=== PATIENT | male | born 1955 | race Caucasian/White ===

== ENCOUNTER 2020-04-29 09:08 | Inpatient (IN) | payer MEDICAID, SELFPAY ==
[~2020-04-29] VITALS: Ht 180.3 cm; Wt 80.7 kg
--- NOTE | 2020-04-29 09:25 | NUR ---
REPORT RECEIVED FROM TOMÁS TIM. THIS IS AN 86 YO M BIB EMS FROM HOME. PT FOUND DOWN, ALTERED W/ REPETITVE SPEECH AND PERIODS OF APNEIC BREATHING. PER EMS PT WAS IN AFIB UNKNOWN HX. UPON ARRIVAL PT REPEATING "I HAD A SEIZURE, I HAD A SEIZURE". DENIES PAIN. PT APPEARS TO HAVE HAD AN EPISODE OF BOWEL INCONTINENCE. PT HAVING INTERMITTENT UNRESPONSIVENESS W/ NORMAL BREATHING. VSS. AT BEDSIDE.
--- NOTE | 2020-04-29 09:37 | NUR ---
PT TRANSPORTED TO CT. RETURNED TO ROOM W/O INCIDENT. RAD IN ROOM.
--- NOTE | 2020-04-29 09:51 | NUR ---
NO RESPONSE FROM PT W/ 2ND PIV STARTED. PT RESPONSIVE TO STERNAL RUB. STILL REPETITIVE SPEECH.
[2020-04-29] MEDS ORDERED: SODIUM CHLORIDE 0.9% 1,000ML IVBOLUS ONE ×2 (10:00→11:00)
[2020-04-29] MEDS ORDERED: SODIUM CHLORIDE FLUSH 10ML SYR IVF ONE (10:00)
[2020-04-29] MEDS ORDERED: DEXTROSE 50%, 50ML SYRINGE ONE (10:01)
--- NOTE | 2020-04-29 10:04 | NUR ---
PER DR.VAN SERRANO OK TO GIVE AMP OF D50.
[2020-04-29 10:07] LABS: BASOPHILS % (AUTO) 0 % (0-1); EOSINOPHILS % (AUTO) 0 % (1-7); LYMPHOCYTES % (AUTO) 2 % (22-44); MEAN CORPUSCULAR HEMOGLOBIN 34.6 pg (27.5-34.5); MEAN CORPUSCULAR HGB CONC 33.3 g/dL (33.2-36.2); MEAN PLATELET VOLUME 8.7 fL (7.4-10.4); MONOCYTES % (AUTO) 6 % (2-9); NEUTROPHILS % (AUTO) 92 % (42-75); PLATELET COUNT 323 x10^3/uL (130-400); RED BLOOD COUNT 3.45 x10^6/uL (4.38-5.82); RED CELL DISTRIBUTION WIDTH 15.4 % (9.4-14.8)
[2020-04-29] MEDS ORDERED: DEXTROSE 50%, 50ML SYRINGE IVPush ONE (10:15)
--- NOTE | 2020-04-29 10:16 | NUR ---
MED XOCHITL FROM PHARMACY.
[2020-04-29 10:18] LABS: ANION GAP 35 mmol/L (5-15); CALCIUM 7.6 mg/dL (8.5-10.1); CHLORIDE 90 mmol/L (98-107); CREATININE 6.48 mg/dL (0.7-1.3)
[2020-04-29 10:19] LABS: ALANINE AMINOTRANSFERASE 74 U/L (12-78); ALBUMIN 3.8 g/dL (3.4-5.0)
[2020-04-29] MEDS ORDERED: LEVETIRACETAM 1,000 MG in SODIUM CHLORIDE 0.9% 100 ML IV ONE (10:30)
[2020-04-29 10:44] LABS: MD MORPH REVIEW ONLY
[2020-04-29 10:45] LABS: ALKALINE PHOSPHATASE 113 U/L (45-117); ANISOCYTOSIS 1+; CREATINE KINASE, TOTAL 7233 U/L (39-308); TOTAL PROTEIN 8.3 g/dL (6.4-8.2)
[2020-04-29] MEDS ORDERED: LORazepam 2 MG/ML, 1ML ONE (10:46)
[2020-04-29 10:47] LABS: <PLATELET ESTIMATE> ADEQUATE; <PLT MORPHOLOGY> NORMAL PLT MORPH
--- NOTE | 2020-04-29 10:50 | NUR ---
2MG ATIVAN GIVEN FOR SEIZURE LIKE ACTIVITY PER .
--- NOTE | 2020-04-29 10:52 | NUR ---
16F ESPINOZA CATH INSERTED W/O INCIDENT. PT HAD 1900ML OUT UPON INSERTION. URINE COLLECTED AND SENT TO LAB.
[2020-04-29 10:55] LABS: SALICYLATE LEVEL 4.8 mg/dL (2.8-20.0)
--- NOTE | 2020-04-29 10:57 | NUR ---
REPORT FROM DUSTIN TIM ATIVAN WITH EXPECTED RESULTS. REPETITIVE MOVEMENTS/SPEECH CEASED PLACED ON OXYMASK FOR ATIVAN RELATED SEDATION POC CLARIFIED WITH PROVIDER (TO TREAT WBC WITH ABX, TO CONSULT ICU SERVICE DESK TECHNICIAN FOR SEVERE ELECTROLYTE ABNORMALITY TX (CALCIUM/PHOS), MEDICAL RECEPTIONIST BILLER ASKED FOR POTASSIUM REPLETION ORDERS
[2020-04-29] MEDS ORDERED: VANCOMYCIN PER PHARMACY MC ONE (11:00)
[2020-04-29] MEDS ORDERED: PIPERACILLIN/TAZO/PMX 4.5GM 100 ML IVPB ONE (11:00)
[2020-04-29] MEDS ORDERED: LORazepam 2 MG/ML, 1ML IVPush ONE (11:00)
--- NOTE | 2020-04-29 11:07 | NUR ---
MEDS REQUESTED FROM PHARMACY ORAL CARE PERFORMED, THICK CHINK OF BLACK MATTER FOUND IN MOUTH NO POTASSIUM REPLETION ORDERS YET NEPHROLOGY (AWAITING RETURN PAGE) TO DIRECT ELECTROLYTE CORRECTION PLAN
[2020-04-29 11:16] LABS: AMPHETAMINE SCREEN, URINE Negative (Negative); BARBITURATE SCREEN, URINE Negative (Negative); BENZODIAZEPINE SCREEN, URINE Negative (Negative); CANNABINOID SCREEN, URINE Negative (Negative); COCAINE SCREEN, URINE Negative (Negative); METHADONE SCREEN, URINE Negative (Negative); OPIATE SCREEN, URINE Negative (Negative)
[2020-04-29 11:20] LABS: MICROSCOPIC AUTO
[2020-04-29] MEDS ORDERED: VANCOMYCIN 1,500 MG in SODIUM CHLORIDE 0.9% 250 ML IV ONE (11:30)
[2020-04-29] MEDS ORDERED: SODIUM CHLORIDE 0.9% 1,000 ML IV ONE (12:00)
[2020-04-29] MEDS ORDERED: SODIUM CHLORIDE FLUSH 10ML SYR IVF PRN (12:00)
[2020-04-29] MEDS ORDERED: SODIUM BICARBONATE 8.4% 150 MEQ in DEXTROSE 5% 1,000 ML IV SCH ×2 (12:00→12:30)
--- NOTE | 2020-04-29 12:07 | NUR ---
NEPHROLOGY SPOKE TO PROVIDER: "PLAN TO START BICARB DRIP AND ELECTROLYTES SHOULD AUTO-CORRECT" ZOSYN COMPLETE, VANCOMYCIN STARTED, BICARB ORDERED FROM PHARMACY
[2020-04-29] MEDS ORDERED: SODIUM BICARBONATE 8.4% 150 MEQ in SODIUM CHLORIDE 0.45% 1,000 ML IV SCH (12:30)
--- NOTE | 2020-04-29 12:59 | NUR ---
TASK RN- SHIV BUSTOSM AT BEDSIDE FOR INTUBATION. PT ADMINISTERED 20 MG ETOMIDATE & 100 MG SUCCINYLCHOLINE.
[2020-04-29] MEDS ORDERED: DEXTROSE 50%, 50ML SYRINGE IVPush PRN (13:00)
[2020-04-29] MEDS ORDERED: DEXTROSE 4 GM TAB.CHEW PO PRN (13:00)
[2020-04-29] MEDS ORDERED: AMPICILLIN/SULBACTAM 1,500 MG in SODIUM CHLORIDE 0.9% 50 ML IV SCH (13:00)
[2020-04-29] MEDS ORDERED: DOCUSATE 100 MG CAPSULE PO PRN (13:00)
[2020-04-29] MEDS ORDERED: ONDANSETRON 2MG/ML, 2ML IVPush PRN (13:00)
[2020-04-29] MEDS ORDERED: LABETALOL 5MG/ML, 20ML IVPush PRN (13:00)
[2020-04-29] MEDS ORDERED: VANCOMYCIN PER PHARMACY MC PRN (13:00)
[2020-04-29] MEDS: SODIUM BICARBONATE 8.4% 150 MEQ in DEXTROSE 5% 1,000 ML IV SCH ×2 (13:00→20:29)
[2020-04-29] MEDS ORDERED: POTASSIUM CHLORIDE 20 MEQ in SODIUM CHLORIDE 0.9% 250 ML IV ONE (13:00)
[2020-04-29] MEDS ORDERED: GLUCAGON 1 MG IM PRN (13:00)
[2020-04-29] MEDS ORDERED: MELATONIN 5 MG TABLET PO PRN (13:00)
--- NOTE | 2020-04-29 13:00 | NUR ---
POTASSIUM REQUESTED FROM PHARMACY
[2020-04-29 13:23] LABS: ANION GAP 28 mmol/L (5-15); CALCIUM 6.6 mg/dL (8.5-10.1); CHLORIDE 99 mmol/L (98-107); CREATININE 5.17 mg/dL (0.7-1.3)
[2020-04-29] MEDS ORDERED: PROPOFOL 100 ML IV PRN ×2 (13:30→14:00)
[2020-04-29] MEDS ORDERED: ETOMIDATE 20 MG/10 ML IV ONE (13:30)
[2020-04-29] MEDS ORDERED: SUCCINYLCHOLINE 20 MG/ML, 10ML IVPush ONE (13:30)
--- NOTE | 2020-04-29 14:31 | NUR ---
POTASSIUM STARTED PATIENT CONTINUES TO VOID MASSIVE AMOUNT- >2L THUS FAR WILL CONTINUE TO CLOSELY MONITOR
[2020-04-29 15:03] LABS: TROPONIN I 0.054 ng/mL (0.000-0.045)
[2020-04-29] MEDS ORDERED: PHARMACOKINETIC MONITORING MC PRN (16:30)
[2020-04-29] MEDS: POTASSIUM CHLORIDE 20 MEQ in SODIUM CHLORIDE 0.9% 250 ML IV SCH ×2 (18:00→20:27)
[2020-04-29] MEDS: HEPARIN 5,000 UNITS/ML, 1ML SQ SCH ×2 (18:29→20:28)
[2020-04-29] MEDS: AMPICILLIN/SULBACTAM 1,500 MG in SODIUM CHLORIDE 0.9% 50 ML IV SCH (18:29)
[2020-04-29] MEDS: PROPOFOL 100 ML IV PRN (18:30)
[2020-04-29] MEDS ORDERED: PROPOFOL 100 ML IV ONE (18:39)
[2020-04-29 19:21] LABS: ANION GAP 22 mmol/L (5-15); CHLORIDE 99 mmol/L (98-107)
[2020-04-29 19:37] LABS: TROPONIN I 0.046 ng/mL (0.000-0.045)
[2020-04-29] MEDS: LEVETIRACETAM 1,000 MG in SODIUM CHLORIDE 0.9% 100 ML IV SCH (20:27)
[2020-04-29] MEDS: SODIUM CHLORIDE FLUSH 10ML SYR IVF SCH (20:28)
[2020-04-29] MEDS: LACTULOSE 10 GM/15 ML UDC PO SCH (20:28)
[2020-04-30] MEDS ORDERED: POTASSIUM CHLORIDE 20 MEQ in SODIUM CHLORIDE 0.9% 250 ML IV SCH
[2020-04-30] MEDS: AMPICILLIN/SULBACTAM 1,500 MG in SODIUM CHLORIDE 0.9% 50 ML IV SCH ×3 (02:00→17:27)
[2020-04-30] MEDS ORDERED: POTASSIUM CHLORIDE 40 MEQ in SODIUM CHLORIDE 0.9% 500 ML IV ONE ×2 (02:00→17:30)
[2020-04-30] MEDS: KSCALE TO 4.0 IV SCH ×4 (04:00→22:00)
[2020-04-30 04:27] LABS: BASOPHILS % (AUTO) 0 % (0-1); EOSINOPHILS % (AUTO) 0 % (1-7); LYMPHOCYTES % (AUTO) 8 % (22-44); MEAN CORPUSCULAR HEMOGLOBIN 35.3 pg (27.5-34.5); MEAN CORPUSCULAR HGB CONC 35.2 g/dL (33.2-36.2); MEAN PLATELET VOLUME 8.3 fL (7.4-10.4); MONOCYTES % (AUTO) 6 % (2-9); NEUTROPHILS % (AUTO) 85 % (42-75); PLATELET COUNT 243 x10^3/uL (130-400); RED BLOOD COUNT 3.16 x10^6/uL (4.38-5.82); RED CELL DISTRIBUTION WIDTH 15.4 % (9.4-14.8)
[2020-04-30 04:29] LABS: MD NO
[2020-04-30] MEDS: HEPARIN 5,000 UNITS/ML, 1ML SQ SCH ×3 (04:57→20:56)
[2020-04-30] MEDS: PROPOFOL 100 ML IV PRN ×3 (04:59→21:54)
[2020-04-30 05:10] LABS: ANION GAP 14 mmol/L (5-15); CHLORIDE 101 mmol/L (98-107); CREATININE 2.69 mg/dL (0.7-1.3)
[2020-04-30 05:11] LABS: ALANINE AMINOTRANSFERASE 50 U/L (12-78); ALBUMIN 2.6 g/dL (3.4-5.0)
[2020-04-30 05:21] LABS: ALKALINE PHOSPHATASE 75 U/L (45-117); BILIRUBIN,TOTAL 0.9 mg/dL (0.2-1.0); TOTAL PROTEIN 5.9 g/dL (6.4-8.2)
[2020-04-30] MEDS ORDERED: POTASSIUM CHLORIDE 30 MEQ in SODIUM CHLORIDE 0.9% 500 ML IV ONE ×3 (06:00→11:00)
[2020-04-30] MEDS ORDERED: KSCALE TO 4.0 IV SCH (08:00)
[2020-04-30] MEDS: SODIUM CHLORIDE FLUSH 10ML SYR IVF SCH ×2 (09:35→21:04)
[2020-04-30] MEDS: LEVETIRACETAM 1,000 MG in SODIUM CHLORIDE 0.9% 100 ML IV SCH ×2 (09:35→21:04)
[2020-04-30] MEDS: LACTULOSE 10 GM/15 ML UDC PO SCH ×2 (09:36→20:56)
[2020-04-30] MEDS: POTASSIUM CHLORIDE 10% 40 MEQ/30 ML UDC PO SCH ×2 (09:36→20:56)
[2020-04-30] MEDS: FAMOTIDINE 20 MG TABLET PO SCH (09:36)
[2020-04-30] MEDS ORDERED: POTASSIUM CHLORIDE 30 MEQ in SODIUM CHLORIDE 0.9% 100 ML IV ONE (10:30)
[2020-04-30] MEDS ORDERED: VANCOMYCIN 1,500 MG in SODIUM CHLORIDE 0.9% 250 ML IV SCH (12:00)
[2020-04-30] MEDS ORDERED: SODIUM BICARBONATE 8.4% 150 MEQ, POTASSIUM CHLORIDE 20 MEQ in DEXTROSE 5% 1,000 ML IV SCH (13:00)
--- NOTE | 2020-04-30 13:07 | NUR ---
TF recs if needed: - (on propofol >25mcg/kg/min) Vital HP w/ end goal rate @55mL/hr; - (on propofol <25mcg/kg/min) Vital HP w/ end goal rate @70mL/hr; - (off propofol) Vital AF 1.2 w/ end goal rate @70mL/hr. Addendum: 04/30/20 at [address] Amended: Links added.
[2020-04-30] MEDS ORDERED: POTASSIUM CHLORIDE PMX 100 ML IV ONE (23:00)
[2020-04-30] MEDS ORDERED: POTASSIUM CHLORIDE 20 MEQ in SODIUM CHLORIDE 0.9% 250 ML IV ONE (23:30)
[2020-05-01] MEDS: PROPOFOL 100 ML IV PRN ×5 (00:46→21:23)
[2020-05-01] MEDS: AMPICILLIN/SULBACTAM 1,500 MG in SODIUM CHLORIDE 0.9% 50 ML IV SCH ×4 (02:02→17:03)
[2020-05-01 04:52] LABS: FIO2 40 %
[2020-05-01 05:15] LABS: BASOPHILS % (AUTO) 1 % (0-1); EOSINOPHILS % (AUTO) 0 % (1-7); LYMPHOCYTES % (AUTO) 16 % (22-44); MEAN CORPUSCULAR HEMOGLOBIN 35.4 pg (27.5-34.5); MEAN CORPUSCULAR HGB CONC 34.5 g/dL (33.2-36.2); MEAN PLATELET VOLUME 8.1 fL (7.4-10.4); MONOCYTES % (AUTO) 10 % (2-9); NEUTROPHILS % (AUTO) 73 % (42-75); PLATELET COUNT 229 x10^3/uL (130-400); RED BLOOD COUNT 3.09 x10^6/uL (4.38-5.82); RED CELL DISTRIBUTION WIDTH 15.5 % (9.4-14.8)
[2020-05-01 05:22] LABS: MD NO
[2020-05-01] MEDS: KSCALE TO 4.0 IV SCH (05:29)
[2020-05-01] MEDS: HEPARIN 5,000 UNITS/ML, 1ML SQ SCH ×3 (05:29→19:50)
[2020-05-01] MEDS ORDERED: POTASSIUM CHLORIDE 20 MEQ in SODIUM CHLORIDE 0.9% 250 ML IV ONE (05:30)
[2020-05-01 06:48] LABS: ALBUMIN 2.4 g/dL (3.4-5.0); ANION GAP 10 mmol/L (5-15); CALCIUM 7.5 mg/dL (8.5-10.1); CHLORIDE 112 mmol/L (98-107)
[2020-05-01 06:49] LABS: BILIRUBIN,TOTAL 0.8 mg/dL (0.2-1.0); CREATININE 0.99 mg/dL (0.7-1.3)
[2020-05-01] MEDS ORDERED: SODIUM PHOSPHATE 40 MMOL in SODIUM CHLORIDE 0.9% 500 ML IV ONE (08:00)
[2020-05-01] MEDS ORDERED: MAGNESIUM SULFATE 6 GM in SODIUM CHLORIDE 0.9% 150 ML IV ONE (08:00)
[2020-05-01] MEDS: SODIUM CHLORIDE FLUSH 10ML SYR IVF SCH ×2 (09:00→20:14)
[2020-05-01] MEDS: FAMOTIDINE 20 MG TABLET PO SCH (09:36)
[2020-05-01] MEDS: LEVETIRACETAM 1,000 MG in SODIUM CHLORIDE 0.9% 100 ML IV SCH ×2 (09:39→20:13)
[2020-05-01] MEDS: POTASSIUM CHLORIDE 10% 40 MEQ/30 ML UDC PO SCH ×2 (09:40→21:16)
[2020-05-01] MEDS: LACTULOSE 10 GM/15 ML UDC PO SCH ×2 (09:40→21:16)
[2020-05-01] MEDS: ACETAMINOPHEN 325 MG TABLET PO PRN (10:59)
[2020-05-01] MEDS: POTASSIUM CHLORIDE 10 MEQ in DEXTROSE 5% 1,000 ML IV SCH ×2 (11:26→21:25)
[2020-05-01] MEDS ORDERED: IBUPROFEN 200 MG TABLET ONE (13:24)
[2020-05-01] MEDS ORDERED: IBUPROFEN 200 MG TABLET PO PRN (13:30)
[2020-05-01 14:27] LABS: OCCULT BLOOD POSITIVE (NEGATIVE)
[2020-05-01] MEDS ORDERED: VANCOMYCIN 1,500 MG in SODIUM CHLORIDE 0.9% 250 ML IV SCH (15:00)
[2020-05-01] MEDS: SODIUM CHLORIDE 0.45% 1,000 ML IV SCH (15:09)
[2020-05-02] MEDS: SODIUM CHLORIDE 0.45% 1,000 ML IV SCH (00:51)
[2020-05-02] MEDS: AMPICILLIN/SULBACTAM 1,500 MG in SODIUM CHLORIDE 0.9% 50 ML IV SCH ×2 (01:18→10:25)
[2020-05-02] MEDS: PROPOFOL 100 ML IV PRN ×4 (02:55→22:18)
[2020-05-02] MEDS: HEPARIN 5,000 UNITS/ML, 1ML SQ SCH ×3 (03:09→20:54)
[2020-05-02 05:53] LABS: ALANINE AMINOTRANSFERASE 32 U/L (12-78); ALBUMIN 2.1 g/dL (3.4-5.0); ANION GAP 5 mmol/L (5-15); CHLORIDE 108 mmol/L (98-107)
[2020-05-02 05:54] LABS: BASOPHILS % (AUTO) 1 % (0-1); EOSINOPHILS % (AUTO) 3 % (1-7); LYMPHOCYTES % (AUTO) 27 % (22-44); MEAN CORPUSCULAR HEMOGLOBIN 35.1 pg (27.5-34.5); MEAN CORPUSCULAR HGB CONC 33.9 g/dL (33.2-36.2); MEAN PLATELET VOLUME 8.3 fL (7.4-10.4); MONOCYTES % (AUTO) 10 % (2-9); NEUTROPHILS % (AUTO) 59 % (42-75); PLATELET COUNT 169 x10^3/uL (130-400); RED BLOOD COUNT 3.05 x10^6/uL (4.38-5.82); RED CELL DISTRIBUTION WIDTH 15.9 % (9.4-14.8)
[2020-05-02 05:56] LABS: ALKALINE PHOSPHATASE 68 U/L (45-117); BILIRUBIN,TOTAL 0.6 mg/dL (0.2-1.0); CREATININE 0.73 mg/dL (0.7-1.3); TOTAL PROTEIN 5.5 g/dL (6.4-8.2)
[2020-05-02 06:09] LABS: MD NO
[2020-05-02] MEDS: POTASSIUM CHLORIDE 40 MEQ in SODIUM CHLORIDE 0.45% 1,000 ML IV SCH ×2 (07:11→17:23)
[2020-05-02] MEDS ORDERED: MAGNESIUM SULFATE PMX 4GM/100M 100 ML IVPB ONE (09:00)
[2020-05-02] MEDS ORDERED: POTASSIUM PHOSPHATE 44 MEQ in SODIUM CHLORIDE 0.9% 500 ML IV ONE (09:00)
[2020-05-02] MEDS: LEVETIRACETAM 1,000 MG in SODIUM CHLORIDE 0.9% 100 ML IV SCH ×2 (10:23→20:53)
[2020-05-02] MEDS: POTASSIUM CHLORIDE 10% 40 MEQ/30 ML UDC PO SCH ×3 (10:29→20:54)
[2020-05-02] MEDS: LACTULOSE 10 GM/15 ML UDC PO SCH ×2 (10:29→20:54)
[2020-05-02] MEDS: SODIUM CHLORIDE FLUSH 10ML SYR IVF SCH ×2 (10:30→20:53)
[2020-05-02] MEDS: FAMOTIDINE 20 MG TABLET PO SCH ×3 (10:32→23:57)
[2020-05-02] MEDS: AMPICILLIN/SULBACTAM 3 GM in SODIUM CHLORIDE 0.9% 100 ML IV SCH ×2 (16:16→21:39)
[2020-05-02] MEDS: ACETAMINOPHEN 325 MG TABLET PO PRN (16:17)
[2020-05-03] MEDS: POTASSIUM CHLORIDE 40 MEQ in SODIUM CHLORIDE 0.45% 1,000 ML IV SCH ×3 (02:54→23:30)
[2020-05-03] MEDS: AMPICILLIN/SULBACTAM 3 GM in SODIUM CHLORIDE 0.9% 100 ML IV SCH ×4 (03:30→21:29)
[2020-05-03] MEDS: HEPARIN 5,000 UNITS/ML, 1ML SQ SCH ×3 (04:44→20:55)
[2020-05-03] MEDS: PROPOFOL 100 ML IV PRN (04:49)
[2020-05-03 06:51] LABS: ANION GAP 8 mmol/L (5-15); CALCIUM 7.5 mg/dL (8.5-10.1); CHLORIDE 112 mmol/L (98-107); CREATININE 0.78 mg/dL (0.7-1.3)
[2020-05-03] MEDS ORDERED: SODIUM PHOSPHATE 20 MMOL in SODIUM CHLORIDE 0.9% 500 ML IV ONE (07:00)
[2020-05-03] MEDS ORDERED: MAGNESIUM SULFATE 6 GM in SODIUM CHLORIDE 0.9% 150 ML IV ONE (07:00)
[2020-05-03] MEDS ORDERED: SCOPOLAMINE PATCH, 1.5MG PATCH.TD72 TD SCH (09:00)
[2020-05-03] MEDS: SODIUM CHLORIDE FLUSH 10ML SYR IVF SCH ×2 (09:00→20:55)
[2020-05-03] MEDS: hydrALAzine 20 MG/ML, 1ML IVPush PRN ×2 (09:35→16:16)
[2020-05-03] MEDS: LEVETIRACETAM 1,000 MG in SODIUM CHLORIDE 0.9% 100 ML IV SCH ×2 (09:53→20:47)
[2020-05-03] MEDS: LACTULOSE 10 GM/15 ML UDC PO SCH ×2 (09:53→20:55)
[2020-05-03] MEDS: FAMOTIDINE 20 MG TABLET PO SCH (12:27)
[2020-05-04] MEDS: FAMOTIDINE 20 MG TABLET PO SCH ×2 (00:05→12:27)
[2020-05-04] MEDS: PROPOFOL 100 ML IV PRN ×2 (00:06→04:47)
[2020-05-04] MEDS: AMPICILLIN/SULBACTAM 3 GM in SODIUM CHLORIDE 0.9% 100 ML IV SCH ×4 (03:25→22:05)
[2020-05-04 03:54] LABS: BASOPHILS % (AUTO) 3 % (0-1); EOSINOPHILS % (AUTO) 4 % (1-7); LYMPHOCYTES % (AUTO) 20 % (22-44); MEAN CORPUSCULAR HEMOGLOBIN 34.6 pg (27.5-34.5); MEAN CORPUSCULAR HGB CONC 33.5 g/dL (33.2-36.2); MEAN PLATELET VOLUME 9.5 fL (7.4-10.4); MONOCYTES % (AUTO) 10 % (2-9); NEUTROPHILS % (AUTO) 63 % (42-75); PLATELET COUNT 134 x10^3/uL (130-400); RED BLOOD COUNT 3.12 x10^6/uL (4.38-5.82); RED CELL DISTRIBUTION WIDTH 15.3 % (9.4-14.8)
[2020-05-04 04:04] LABS: ANION GAP 6 mmol/L (5-15); CALCIUM 7.6 mg/dL (8.5-10.1); CHLORIDE 112 mmol/L (98-107); CREATININE 0.75 mg/dL (0.7-1.3)
[2020-05-04 04:08] LABS: MD NO
[2020-05-04] MEDS: HEPARIN 5,000 UNITS/ML, 1ML SQ SCH ×3 (04:45→21:11)
[2020-05-04] MEDS ORDERED: SODIUM PHOSPHATE 40 MMOL in SODIUM CHLORIDE 0.9% 500 ML IV ONE (07:00)
[2020-05-04] MEDS ORDERED: MAGNESIUM SULFATE 6 GM in SODIUM CHLORIDE 0.9% 150 ML IV ONE (07:00)
[2020-05-04] MEDS: LACTULOSE 10 GM/15 ML UDC PO SCH ×2 (09:00→21:11)
[2020-05-04] MEDS: SODIUM CHLORIDE FLUSH 10ML SYR IVF SCH ×2 (09:00→21:11)
[2020-05-04] MEDS: hydrALAzine 20 MG/ML, 1ML IVPush PRN (09:04)
[2020-05-04] MEDS: POTASSIUM CHLORIDE 10% 40 MEQ/30 ML UDC PO SCH ×2 (09:21→21:11)
[2020-05-04] MEDS: LEVETIRACETAM 1,000 MG in SODIUM CHLORIDE 0.9% 100 ML IV SCH ×2 (10:45→21:11)
[2020-05-04] MEDS: ACETAMINOPHEN 325 MG TABLET PO PRN (12:52)
[2020-05-05] MEDS: FAMOTIDINE 20 MG TABLET PO SCH ×2 (00:33→13:06)
[2020-05-05] MEDS: AMPICILLIN/SULBACTAM 3 GM in SODIUM CHLORIDE 0.9% 100 ML IV SCH ×4 (04:23→21:58)
[2020-05-05] MEDS: ACETAMINOPHEN 325 MG TABLET PO PRN ×3 (04:23→21:57)
[2020-05-05] MEDS: HEPARIN 5,000 UNITS/ML, 1ML SQ SCH ×3 (04:25→21:57)
[2020-05-05 04:39] LABS: BASOPHILS % (AUTO) 2 % (0-1); EOSINOPHILS % (AUTO) 4 % (1-7); LYMPHOCYTES % (AUTO) 21 % (22-44); MEAN CORPUSCULAR HEMOGLOBIN 34.7 pg (27.5-34.5); MEAN CORPUSCULAR HGB CONC 33.4 g/dL (33.2-36.2); MEAN PLATELET VOLUME 9.3 fL (7.4-10.4); MONOCYTES % (AUTO) 10 % (2-9); NEUTROPHILS % (AUTO) 63 % (42-75); PLATELET COUNT 168 x10^3/uL (130-400); RED CELL DISTRIBUTION WIDTH 15.3 % (9.4-14.8)
[2020-05-05 04:42] LABS: MD NO
[2020-05-05 04:43] LABS: ANION GAP 6 mmol/L (5-15); CALCIUM 8.3 mg/dL (8.5-10.1); CHLORIDE 115 mmol/L (98-107); CREATININE 0.88 mg/dL (0.7-1.3)
[2020-05-05] MEDS: LACTULOSE 10 GM/15 ML UDC PO SCH ×2 (08:57→21:57)
[2020-05-05] MEDS: SODIUM CHLORIDE FLUSH 10ML SYR IVF SCH ×2 (08:57→21:57)
[2020-05-05] MEDS ORDERED: MAGNESIUM SULFATE PMX 4GM/100M 100 ML IVPB ONE (12:30)
[2020-05-05] MEDS: hydrALAzine 20 MG/ML, 1ML IVPush PRN (16:59)
[2020-05-05 23:08] VITALS: BP 152/92
[2020-05-06] MEDS: FAMOTIDINE 20 MG TABLET PO SCH ×2 (00:23→12:24)
[2020-05-06] MEDS: ACETAMINOPHEN 325 MG TABLET PO PRN ×3 (04:05→16:12)
[2020-05-06] MEDS: AMPICILLIN/SULBACTAM 3 GM in SODIUM CHLORIDE 0.9% 100 ML IV SCH ×4 (04:10→23:04)
[2020-05-06 04:20] VITALS: BP 158/103
[2020-05-06 05:42] LABS: ANION GAP 6 mmol/L (5-15); CALCIUM 8.5 mg/dL (8.5-10.1); CHLORIDE 110 mmol/L (98-107)
[2020-05-06 05:43] LABS: CREATININE 0.81 mg/dL (0.7-1.3)
[2020-05-06] MEDS: HEPARIN 5,000 UNITS/ML, 1ML SQ SCH ×3 (05:50→20:58)
[2020-05-06 06:25] VITALS: BP 149/91
[2020-05-06] MEDS: SODIUM CHLORIDE FLUSH 10ML SYR IVF SCH ×2 (08:45→20:58)
[2020-05-06] MEDS: LACTULOSE 10 GM/15 ML UDC PO SCH ×2 (08:45→20:57)
[2020-05-06 12:15] VITALS: BP 170/110
[2020-05-06] MEDS: hydrALAzine 20 MG/ML, 1ML IVPush PRN (12:24)
[2020-05-06 13:28] VITALS: BP 116/76
[2020-05-06] MEDS: TAMSULOSIN 0.4 MG CAP.ER.24H PO SCH (16:13)
[2020-05-06] MEDS: OXYcodone/APAP 5/325MG TABLET PO PRN (17:04)
[2020-05-06 18:32] VITALS: BP 151/99
[2020-05-06 20:04] VITALS: BP 126/95
[2020-05-07] MEDS: FAMOTIDINE 20 MG TABLET PO SCH ×2 (00:40→13:04)
[2020-05-07 00:44] VITALS: BP 161/107
[2020-05-07] MEDS: hydrALAzine 20 MG/ML, 1ML IVPush PRN (00:46)
[2020-05-07 02:51] VITALS: BP 150/102
[2020-05-07 04:32] VITALS: BP 151/100
[2020-05-07] MEDS: AMPICILLIN/SULBACTAM 3 GM in SODIUM CHLORIDE 0.9% 100 ML IV SCH ×4 (05:10→22:55)
[2020-05-07] MEDS: HEPARIN 5,000 UNITS/ML, 1ML SQ SCH ×3 (05:11→20:20)
[2020-05-07 05:35] LABS: BASOPHILS % (AUTO) 2 % (0-1); EOSINOPHILS % (AUTO) 2 % (1-7); LYMPHOCYTES % (AUTO) 23 % (22-44); MEAN CORPUSCULAR HEMOGLOBIN 34.1 pg (27.5-34.5); MEAN CORPUSCULAR HGB CONC 33.5 g/dL (33.2-36.2); MEAN PLATELET VOLUME 9.5 fL (7.4-10.4); MONOCYTES % (AUTO) 13 % (2-9); NEUTROPHILS % (AUTO) 60 % (42-75); PLATELET COUNT 256 x10^3/uL (130-400); RED BLOOD COUNT 3.45 x10^6/uL (4.38-5.82); RED CELL DISTRIBUTION WIDTH 15.2 % (9.4-14.8)
[2020-05-07 05:38] LABS: MD NO
[2020-05-07 05:44] LABS: ANION GAP 7 mmol/L (5-15); CALCIUM 8.8 mg/dL (8.5-10.1); CHLORIDE 107 mmol/L (98-107)
[2020-05-07 05:46] LABS: CREATININE 0.74 mg/dL (0.7-1.3)
[2020-05-07 07:12] VITALS: BP 143/94
[2020-05-07] MEDS: SODIUM CHLORIDE FLUSH 10ML SYR IVF SCH ×2 (08:47→20:20)
[2020-05-07] MEDS: TAMSULOSIN 0.4 MG CAP.ER.24H PO SCH (08:47)
[2020-05-07] MEDS: LACTULOSE 10 GM/15 ML UDC PO SCH ×2 (08:47→20:04)
[2020-05-07] MEDS: ACETAMINOPHEN 325 MG TABLET PO PRN (08:48)
[2020-05-07 13:40] VITALS: BP_SYST 134; BP_SYST 160; BP_DIAS 85; BP_DIAS 98
[2020-05-07] MEDS: OXYcodone/APAP 5/325MG TABLET PO PRN (20:20)
[2020-05-08] MEDS: FAMOTIDINE 20 MG TABLET PO SCH ×2 (00:33→11:12)
[2020-05-08] MEDS: OXYcodone/APAP 5/325MG TABLET PO PRN ×4 (00:34→13:36)
[2020-05-08 03:07] VITALS: BP 149/101
[2020-05-08] MEDS: HEPARIN 5,000 UNITS/ML, 1ML SQ SCH ×2 (04:58→11:12)
[2020-05-08] MEDS: AMPICILLIN/SULBACTAM 3 GM in SODIUM CHLORIDE 0.9% 100 ML IV SCH ×2 (04:59→11:11)
[2020-05-08 06:39] VITALS: BP 145/95
[2020-05-08] MEDS: LACTULOSE 10 GM/15 ML UDC PO SCH (08:34)
[2020-05-08] MEDS: SODIUM CHLORIDE FLUSH 10ML SYR IVF SCH (08:34)
[2020-05-08] MEDS: TAMSULOSIN 0.4 MG CAP.ER.24H PO SCH (08:34)
[2020-05-08] MEDS ORDERED: ACET325T26 PO (10:07)
[2020-05-08] MEDS ORDERED: FAMO20TA7 PO (10:07)
[2020-05-08] MEDS ORDERED: TAMS-11 PO (10:07)
[2020-05-08] MEDS ORDERED: AMOX875T PO (10:07)
[2020-05-08] MEDS ORDERED: LACT10SO24 PO (10:07)
[2020-05-08] MEDS ORDERED: MELA5TAB14 PO (10:07)
[2020-05-08] MEDS ORDERED: DOCU100C33 PO (10:07)
[2020-05-08] MEDS ORDERED: OXYcodone/APAP 5/325MG PO (10:07)
[2020-05-08] MEDS ORDERED: HEPA50002 SQ (10:07)
[2020-05-08] MEDS: ACETAMINOPHEN 325 MG TABLET PO PRN (11:11)
[2020-05-08 13:37] VITALS: BP 176/112
[2020-05-08] MEDS: hydrALAzine 20 MG/ML, 1ML IVPush PRN (13:42)
[2020-05-08 14:15] VITALS: BP 161/111
[2020-05-08 14:27] VITALS: BP 163/103
== END 2020-05-08 15:10 | DRG 871 ==
LOC: ED 12:09 → EDIP 12:46 → ICU 15:38 → CCU 05-01 02:23 → 4NE 05-05 19:14
PROVIDERS: ADMIT Hospitalist; ATTEND Internal Medicine
PROC: 0BH17EZ Insertion of Endotracheal Airway into Trachea, Via Natural or Artificial Opening (ICD-10-PCS; principal; 2020-04-29)
PROC: 5A1945Z Respiratory Ventilation, 24-96 Consecutive Hours (ICD-10-PCS; 2020-04-29)
DX: A41.01 Sepsis due to Methicillin susceptible Staphylococcus aureus (principal); J15.211 Pneumonia due to Methicillin susceptible Staphylococcus aureus; J96.01 Acute respiratory failure with hypoxia; N17.0 Acute kidney failure with tubular necrosis; E87.0 Hyperosmolality and hypernatremia; E87.4 Mixed disorder of acid-base balance; G93.49 Other encephalopathy; J98.11 Atelectasis; M62.82 Rhabdomyolysis; D53.9 Nutritional anemia, unspecified; E16.2 Hypoglycemia, unspecified; E87.6 Hypokalemia; E87.8 Other disorders of electrolyte and fluid balance, not elsewhere classified; E88.09 Other disorders of plasma-protein metabolism, not elsewhere classified; I10 Essential (primary) hypertension; N13.9 Obstructive and reflux uropathy, unspecified; Z20.828 Contact with and (suspected) exposure to other viral communicable diseases; R53.81 Other malaise; G40.901 Epilepsy, unspecified, not intractable, with status epilepticus
CPT/HCPCS: 36415; 36600; 70450; 71045; 76700; 80048; 80053; 80074; 80177; 80202; 80299; 80307; 80320; 80329; 81001; 82040; 82140; 82247; 82272; 82550; 82607; 82728; 82803; 82962; 83540; 83550; 83605; 83690; 83735; 84100; 84132; 84443; 84484; 85025; 87040; 87070; 87077; 87081; 87086; 87147; 87186; 87205; 87635; 93005; 93306; 94003; 95819; 96365; 99291; G0378; J0295; J1644; J1953; J2405; J2543; J2704; J3370; J3475; J3480; J7070; G0480; J0330; J0360; J2060; J7030; J7040; J7050; U0003